=== PATIENT | male | born 1960 | race Caucasian/White ===

== ENCOUNTER 2022-07-02 08:12 | Outpatient (CLI) | payer OTHER, SELFPAY ==
[2022-07-02 08:52] LABS: Creatinine* 0.8 mg/dL (0.5-1.5); Estimated Glomerular Filt Rate 101 ml/min
--- NOTE | 2022-07-02 09:00 | CRLHL7_ITS ---
For Patients: As a result of the Century Cures Act, medical imaging exams and procedure reports are released immediately into your electronic medical record. You may view this report before your referring provider. If you have questions, please contact your health care provider. INDICATION: Right neck swelling. TECHNIQUE: CT of the neck soft tissues performed with IV contrast. Contrast: 95 cc Isovue 370. COMPARISON: None available at this institution. FINDINGS: There is fullness to the right palatine tonsil region, with masslike lesion measuring up to 2.0 x 1.6 cm (series 3, image 35). Lymph node severely compresses the internal jugular vein. There is a necrotic lymph node identified spanning right levels 2 and 3, measuring up to 6.6 cm in craniocaudad maximal diameter. There is haziness noted along the inferior aspect of the lymph node, with effacement of the fat plane between the lymph node in the sternocleidomastoid muscle. There are additional scattered smaller right cervical chain lymph nodes. The nasopharynx appears unremarkable. The supraglottic, glottic and infraglottic spaces are preserved. The parotid and submandibular glands appear unremarkable. The thyroid gland is normal. The visualized intracranial components appear grossly intact. Visualized orbits and contents appear unremarkable. Follow-up paranasal sinus mucosal disease. Scattered emphysema and atelectasis within the visualized lung apices. Mild spondylosis of the cervical spine. IMPRESSION: 1. Right palatine tonsil masslike fullness, worrisome for primary cancer. 2. Large right conglomerate levels 2 and 3 necrotic lymph node worrisome for metastases. Suggestion of extranodal spread, with haziness and effacement of the border between the lymph node and the sternocleidomastoid muscle along its inferior margin. 3. ENT consultation is recommended. Please note that all CT scans at this facility use dose modulation, iterative reconstruction, and/or weight-based dosing when appropriate to reduce radiation dose to as low as reasonably achievable. Dictated by Fede Hughes MD @ 07/02/2022 3:59:43 PM (Electronically Signed)
== END 2022-07-02 08:13 | disposition home or self-care (01) ==
LOC: CT 08:14
PROVIDERS: PCP Family Medicine; Visit Provider Family Medicine
DX: R22.1 Localized swelling, mass and lump, neck (principal); R59.9 Enlarged lymph nodes, unspecified
CPT/HCPCS: 36415; 70491; 82565; Q9967

== ENCOUNTER 2022-08-13 22:58 | Emergency (ER) | payer OTHER, SELFPAY ==
[2022-08-13 23:13] VITALS: BP 123/79; PULSE 113; RESP 20; TEMP 36.5; O2SAT 95; BMI 39.5
--- NOTE | 2022-08-13 23:37 | CRLHL7_ITS ---
For Patients: As a result of the Century Cures Act, medical imaging exams and procedure reports are released immediately into your electronic medical record. You may view this report before your referring provider. If you have questions, please contact your health care provider. INDICATION: Postop pain, difficulty swallowing. TECHNIQUE: CT soft tissue of the neck was acquired with 138 cc Isovue 370 IV contrast. COMPARISON: 07/02/2022. FINDINGS: Interval postsurgical changes of the right base of tongue and right neck dissection. Small peripherally enhancing low density collection in the right level IIa station measuring 1.2 x 0.8 x 1.1 cm (TR x AP x CC). Skull base: Unremarkable. Pharynx/Larynx/Trachea: Epiglottis is normal. Airway is patent. Salivary glands: Unremarkable. Thyroid gland: Unremarkable. No significant nodules. Lymph nodes: No lymphadenopathy. Vessels: Unremarkable for age. Bones: Degenerative changes of the spine. Misc: Asymmetric edema of the right sternocleidomastoid muscle. Lung apices: Emphysema. IMPRESSION: Postsurgical changes of the right base of tongue and right neck dissection. Small peripherally enhancing low density collection in the surgical bed right level IIa station, concerning for abscess. Please note that all CT scans at this facility use dose modulation, iterative reconstruction, and/or weight-based dosing when appropriate to reduce radiation dose to as low as reasonably achievable. Dictated by Sabino Martinez MD @ 08/14/2022 2:52:09 AM (Electronically Signed)
--- NOTE | 2022-08-13 23:53 | ED_ITS ---
HPI - General Adult General Chief complaint: Post Op Complication Stated complaint: post surgery pain, difficulty swallowing Time Seen by Provider: 08/13/22 23:34 History of Present Illness HPI narrative: Pt is a 62 year old gentleman who 10 days ago had surgery for oropharyngeal cancer. Pt was discharged and was managing his hydration and pain fairly well until the last 4 days during which time he has had progressive neck swelling primarily on the right and difficulty with hydration and pain control. No fevers or chills. No nausea or vomiting. No rashes. Pt has been taking oxycodone and tylenol for the pain which has been severe and uncontrolled. Related Data Home Medications Medication Instructions Recorded Confirmed atenolol 50 mg tablet 50 mg PO 07/07/22 07/07/22 rosuvastatin 10 mg tablet 10 mg PO 07/07/22 07/07/22 ibuprofen 08/13/22 oxycodone 5 mg tablet mg 08/13/22 tylenol 08/13/22 Previous Rx's Medication Instructions Recorded amoxicillin 400 mg-potassium 10 ml PO Q12H 7 days #140 mL 08/14/22 clavulanate 57 mg/5 mL oral suspension methylprednisolone 4 mg tablets in See Rx Instructions PO .COMPLEX 08/14/22 a dose pack (Medrol (David)) #21 ea oxycodone 5 mg/5 mL oral solution 10 mg (10 mL) PO Q8H PRN pain #200 08/14/22 mL Allergies Allergy/AdvReac Type Severity Reaction Status Date / Time prochlorperazine Allergy Unknown Itchy skin Verified 08/14/22 01:22 [From Compazine] ciprofloxacin Allergy Rash Verified 08/14/22 01:22 Review of Systems Status of ROS: Reports: 10 or more systems reviewed and unremarkable except as noted in History and below [facility] Medical History (Updated 08/14/22 @ 04:13 by Johnathan Hercules MD) Hyperlipidemia Hypertension Oropharyngeal cancer Social History Smoking Status: Current every day smoker How often do you have a drink containing alcohol: never AUDIT-C Alcohol total score: 0 Non-prescribed substance use: denies use Exam Narrative: Exam Narrative: EXAM GENERAL: Patient appears uncomfortable EYES: No scleral icterus. ENT: Oropharynx dry with postoperative surgical changes. Neck exam shows neck dissection incision with firm swelling on the right side. THYROID: no thyroid nodules or thyromegaly. LYMPH: No supraclavicular or cervical lymphadenopathy. SKIN: Visible skin seen during exam normal or with benign process only. EXT: No dependent lower extremity pedal edema. HEART: Regular rate and rhythm with no murmurs, rubs, or gallops. LUNGS: Clear to auscultation bilaterally with no crackles or wheezes. ABD: Soft, non tender, non distended. PSYCH: Good eye contact, speech is not pressured. Const: Vital Signs, click to edit/add: Vital Signs - 24 hr 08/13/22 23:13 08/14/22 00:19 08/14/22 00:30 Temperature 97.7 F Pulse Rate Pulse Rate [Left P ulse Oximeter] 113 H 96 88 Respiratory Rate 20 16 18 Blood Pressure Blood Pressure [Ri ght Upper Arm] 123/79 135/85 150/101 H Pulse Oximetry 95 96 92 Oxygen Delivery Me thod Room Air Room Air 08/14/22 00:30 08/14/22 00:31 08/14/22 00:32 Temperature Pulse Rate 90 91 91 Pulse Rate [Left P ulse Oximeter] Respiratory Rate Blood Pressure 150/101 H 161/96 H Blood Pressure [Ri ght Upper Arm] Pulse Oximetry 94 92 92 Oxygen Delivery Me thod 08/14/22 00:45 08/14/22 01:00 08/14/22 01:04 Temperature Pulse Rate 90 91 89 Pulse Rate [Left P ulse Oximeter] Respiratory Rate Blood Pressure 143/82 H Blood Pressure [Ri ght Upper Arm] Pulse Oximetry 94 94 95 Oxygen Delivery Me thod 08/14/22 01:15 08/14/22 01:37 08/14/22 01:45 Temperature Pulse Rate 87 95 84 Pulse Rate [Left P ulse Oximeter] Respiratory Rate Blood Pressure Blood Pressure [Ri ght Upper Arm] Pulse Oximetry 94 96 94 Oxygen Delivery Me thod 08/14/22 02:00 08/14/22 02:02 08/14/22 02:15 Temperature Pulse Rate 83 78 89 Pulse Rate [Left P ulse Oximeter] Respiratory Rate Blood Pressure 160/80 H Blood Pressure [Ri ght Upper Arm] Pulse Oximetry 95 93 94 Oxygen Delivery Me thod 08/14/22 02:30 08/14/22 02:32 08/14/22 02:45 Temperature Pulse Rate 74 76 81 Pulse Rate [Left P ulse Oximeter] Respiratory Rate Blood Pressure 154/78 H Blood Pressure [Ri ght Upper Arm] Pulse Oximetry 92 92 96 Oxygen Delivery Me thod 08/14/22 03:00 08/14/22 03:02 08/14/22 03:15 Temperature Pulse Rate 83 81 85 Pulse Rate [Left P ulse Oximeter] Respiratory Rate Blood Pressure 155/82 H Blood Pressure [Ri ght Upper Arm] Pulse Oximetry 96 95 95 Oxygen Delivery Me thod 08/14/22 03:30 08/14/22 03:32 08/14/22 03:45 Temperature Pulse Rate 77 84 75 Pulse Rate [Left P ulse Oximeter] Respiratory Rate Blood Pressure 147/88 H Blood Pressure [Ri ght Upper Arm] Pulse Oximetry 94 93 93 Oxygen Delivery Me thod 08/14/22 04:00 08/14/22 04:02 Temperature Pulse Rate 76 78 Pulse Rate [Left P ulse Oximeter] Respiratory Rate Blood Pressure 142/81 H Blood Pressure [Ri ght Upper Arm] Pulse Oximetry 94 93 Oxygen Delivery Me thod Course Course Hospital Course: Pt seen and examined. Labs and CT ordered. IV placed. Normal saline, zofran and dilaudid given. Reevaluation(s) Reevaluation #1: Pt feeling better after IV hydration and dilaudid. Labs stable with elevated WBC noted. 1 cm abscess in the surgical field noted on CT of the neck with IV contrast. [facility] contacted. Awaiting call back. Time: 03:38 Vital Signs Vital signs: Initial Vital Signs Temperature 97.7 F 08/13/22 23:13 Temperature Source Temporal Artery Scan 08/13/22 23:13 Pulse Rate 113 H 08/13/22 23:13 Respiratory Rate 20 08/13/22 23:13 Blood Pressure 123/79 08/13/22 23:13 Blood Pressure Mean 93 08/13/22 23:13 Blood Pressure Position Sitting 08/13/22 23:13 Pulse Oximetry 95 08/13/22 23:13 Oxygen Delivery Method 08/13/22 23:13 Vital Signs Temperature 97.7 F 08/13/22 23:13 Pulse Rate 113 H 08/13/22 23:13 Respiratory Rate 20 08/13/22 23:13 Blood Pressure 123/79 08/13/22 23:13 Pulse Oximetry 95 08/13/22 23:13 Oxygen Delivery Method 08/13/22 23:13 Temperature 97.7 F 08/13/22 23:13 Pulse Rate 78 08/14/22 04:02 Respiratory Rate 18 08/14/22 00:30 Blood Pressure 142/81 H 08/14/22 04:02 Pulse Oximetry 93 08/14/22 04:02 Oxygen Delivery Method 08/14/22 00:30 Medical Decision Making MDM Narrative Medical decision making narrative: Pt is a 62 year old gentleman who presents roughly 10 days after surgery for oropharyngeal cancer with pain and dehydration. Pt given IV fluids and pain medication. Cultures collected. CT shows 1 cm abscess. Case discussed with ENT at [facility] who recommend Augmentin, Medrol dose pack and Pain control with ENT follow up as scheduled in 2 days. Antibiotics started with Unasyn first dose tonight as well as solumedrol. Differential Diagnosis Differential Diagnosis: Infection, Hematoma, Perforation, Malignancy, Post op complication Medical Records Medical records reviewed: Yes I reviewed the patient's medical records Lab Data Labs: Lab Results 08/13/22 08/13/22 08/13/22 Range/Units 00:16 23:37 23:37 WBC 17.33 H (4.50-11.00) K/uL RBC 5.22 (4.30-5.90) m/uL Hgb 15.0 (13.5-17.5) gm/dL Hct 45.3 (37.0-53.0) % MCV 87 (80-100) fL MCH 29 (26-34) pg MCHC 33 (32-36) gm/dL RDW Coeff of Otis 13.4 (11.5-15.5) % Plt Count 255 (140-440) K/uL Neut % (Auto) 84.0 H (42.0-72.0) % Lymph % (Auto) 7.8 L (20-44) % [place] % (Auto) 6.3 (0.0-11.0) % Eos % (Auto) 1.3 (0.0-7.0) % Baso % (Auto) 0.1 (0.0-3.0) % Neut # (Auto) 14.60 H (1.7-7.0) K/uL Lymph # (Auto) 1.40 (0.90-2.90) K/uL [place] # (Auto) 1.10 H (0.00-0.90) K/UL Eos # (Auto) 0.20 (0.00-0.50) K/uL Baso # (Auto) 0.00 (0.00-0.30) K/uL Sodium 139 (135-149) mmol/L Potassium 4.3 (3.6-5.1) mmol/L Chloride 110 (96-114) mmol/L Carbon Dioxide 20 (20-32) mmol/L BUN 15 (7-30) mg/dL Creatinine 0.7 (0.5-1.5) mg/dL Estimated Creat Clear 82.62 Estimated GFR 105 ml/min Glucose 130 H (60-115) mg/dL Lactate 1.2 (0.5-1.9) mmol/L Calcium 8.8 (8.4-10.6) mg/dL Total Bilirubin 0.6 (0.1-1.5) mg/dL AST 27 (12-35) U/L ALT 26 (4-50) U/L Alkaline Phosphatase 79 (40-150) U/L Total Protein 7.3 (6.0-8.3) g/dL Albumin 4.0 (3.3-5.0) g/dL SARS-CoV-2 (PCR) (Negative) 08/14/22 Range/Units 03:09 WBC (4.50-11.00) K/uL RBC (4.30-5.90) m/uL Hgb (13.5-17.5) gm/dL Hct (37.0-53.0) % MCV (80-100) fL MCH (26-34) pg MCHC (32-36) gm/dL RDW Coeff of Otis (11.5-15.5) % Plt Count (140-440) K/uL Neut % (Auto) (42.0-72.0) % Lymph % (Auto) (20-44) % [place] % (Auto) (0.0-11.0) % Eos % (Auto) (0.0-7.0) % Baso % (Auto) (0.0-3.0) % Neut # (Auto) (1.7-7.0) K/uL Lymph # (Auto) (0.90-2.90) K/uL [place] # (Auto) (0.00-0.90) K/UL Eos # (Auto) (0.00-0.50) K/uL Baso # (Auto) (0.00-0.30) K/uL Sodium (135-149) mmol/L Potassium (3.6-5.1) mmol/L Chloride (96-114) mmol/L Carbon Dioxide (20-32) mmol/L BUN (7-30) mg/dL Creatinine (0.5-1.5) mg/dL Estimated Creat Clear Estimated GFR ml/min Glucose (60-115) mg/dL Lactate (0.5-1.9) mmol/L Calcium (8.4-10.6) mg/dL Total Bilirubin (0.1-1.5) mg/dL AST (12-35) U/L ALT (4-50) U/L Alkaline Phosphatase (40-150) U/L Total Protein (6.0-8.3) g/dL Albumin (3.3-5.0) g/dL SARS-CoV-2 (PCR) Negative SARS-CoV-2 (Negative) Discharge Plan Discharge Clinical Impression: Post-operative complication Patient Disposition: Home, Self-Care Condition: Stable Additional Instructions: Medications as prescribed Follow up with ENT Tuesday Activity Level: No Restrictions Discharge Diet: Regular Prescriptions: New oxycodone 5 mg/5 mL solution 10 mg PO Q8H PRN (Reason: pain) Qty: 200 0RF methylprednisolone [Medrol (David)] 4 mg tablets,dose pack See Rx Instructions .ROUTE .COMPLEX Qty: 21 0RF Rx Instructions: orally per package directions amoxicillin-pot clavulanate 400-57 mg/5 mL suspension for reconstitution 10 ml PO Q12H 7 Days Qty: 140 0RF No Action atenolol 50 mg tablet 50 mg PO rosuvastatin 10 mg tablet 10 mg PO oxycodone 5 mg tablet tylenol ibuprofen Follow Up/Referrals: Haider Adamson MD [Primary Care Provider] - Stand Alone Forms: MyHealth Info Instructions
[2022-08-14] VITALS (31 sets, daily range): BP systolic 135–161; BP diastolic 78–101; PULSE 74–96; RESP 16–18; O2SAT 92–96
[2022-08-14] MEDS: 0.9 % SODIUM CHLORIDE 1000 ml 1,000 ML IV ×2 (00:10→01:40)
[2022-08-14] MEDS: HYDROmorphone 0.5 mg/0.5 ml inj IVP ×3 (00:11→03:31)
[2022-08-14] MEDS: ONDANSETRON 2 MG/ML inj 4 MG IVP (00:11)
[2022-08-14 00:22] LABS: Lactate* 1.2 mmol/L (0.5-1.9)
[2022-08-14 00:25] LABS: Basophils Percent Auto 0.1 % (0.0-3.0); Eosinophils Percent Auto 1.3 % (0.0-7.0); Hematocrit 45.3 % (37.0-53.0); Immature Granulocytes Pct Auto 0.5 %; Lymphocytes Percent Auto 7.8 % (20-44); Mean Corpuscular HGB Conc 33 gm/dL (32-36); Mean Corpuscular Hemoglobin 29 pg (26-34); Mean Corpuscular Volume 87 fL (80-100); Monocytes Percent Auto 6.3 % (0.0-11.0); Platelet Count* 255 K/uL (140-440); RDW Coefficient of Variation % 13.4 % (11.5-15.5); Red Blood Count 5.22 m/uL (4.30-5.90); White Blood Count* 17.33 K/uL (4.50-11.00)
[2022-08-14 00:30] LABS: Slide Review Reflex No
[2022-08-14 00:59] LABS: Chloride* 110 mmol/L (96-114); Sodium* 139 mmol/L (135-149)
[2022-08-14 01:00] LABS: Potassium* 4.3 mmol/L (3.6-5.1)
[2022-08-14 01:02] LABS: Alkaline Phosphatase* 79 U/L (40-150); Aspartate Amino Transferase* 27 U/L (12-35); Bilirubin Total* 0.6 mg/dL (0.1-1.5); Blood Urea Nitrogen* 15 mg/dL (7-30); Carbon Dioxide* 20 mmol/L (20-32); Creatinine* 0.7 mg/dL (0.5-1.5); Est. Creatinine Clearance* 82.62; Estimated Glomerular Filt Rate 105 ml/min; Total Protein* 7.3 g/dL (6.0-8.3)
[2022-08-14 01:03] LABS: Alanine Aminotransferase* 26 U/L (4-50); Calcium* 8.8 mg/dL (8.4-10.6); Glucose* 130 mg/dL (60-115)
[2022-08-14 03:52] LABS: SARS PCR* Negative SARS-CoV-2 (Negative)
[2022-08-14] MEDS: AMPICILLIN/SULBACTAM 3 GM in 0.9 % SODIUM CHLORIDE Mini-bag 100 ML IVPB (04:29)
[2022-08-14] MEDS: METHYLPREDNISOLONE SOD SUCC 40 MG/ML IVP (04:56)
== END 2022-08-14 05:20 | disposition home or self-care (01) ==
PROVIDERS: Emergency Provider Internal Medicine; PCP Family Medicine
DX: G89.18 Other acute postprocedural pain (principal); R07.0 Pain in throat; C10.9 Malignant neoplasm of oropharynx, unspecified
CPT/HCPCS: 36415; 70491; 80053; 83605; 85025; 87040; 87635; 96365; 96375; 96376; 99283; 99284; J0295; J1170; J2405; J2920; J7030; Q9967

== ENCOUNTER 2022-11-19 08:15 | Outpatient (RCR) | payer OTHER, SELFPAY ==
--- NOTE | 2022-08-27 14:23 | URNOTE ---
Request received for authorization for Fosaprepitant ([id number]), Palonosetron (J2469), and Cisplatin (J9060). Prior authorization is not required per [facility] RepJoselito Strange Ref#[id number].
[2022-08-30 12:06] LABS: Basophils Absolute Auto 0.01 K/uL (0.00-0.30); Basophils Percent Auto 0.1 % (0.0-3.0); Eosinophils Absolute Auto 0.38 K/uL (0.00-0.50); Eosinophils Percent Auto 5.4 % (0.0-7.0); Hematocrit 45.1 % (37.0-53.0); Hemoglobin* 14.7 gm/dL (13.5-17.5); Immature Granulocytes Abs Auto 0.05 K/uL (0.00-0.30); Immature Granulocytes Pct Auto 0.7 %; Lymphocytes Absolute Auto 1.88 K/uL (0.90-2.90); Lymphocytes Percent Auto 26.7 % (20-44); Mean Corpuscular HGB Conc 33 gm/dL (32-36); Mean Corpuscular Hemoglobin 29 pg (26-34); Mean Corpuscular Volume 88 fL (80-100); Monocytes Percent Auto 9.5 % (0.0-11.0); Neutrophils Absolute Auto 4.04 K/uL (1.7-7.0); Neutrophils Percent Auto 57.6 % (42.0-72.0); Platelet Count* 287 K/uL (140-440); RDW Coefficient of Variation % 13.8 % (11.5-15.5); Red Blood Count 5.15 m/uL (4.30-5.90); White Blood Count* 7.03 K/uL (4.50-11.00)
[2022-08-30 12:10] LABS: Slide Review Reflex No
[2022-08-30 12:19] LABS: Chloride* 107 mmol/L (96-114)
[2022-08-30 12:20] LABS: Potassium* 4.9 mmol/L (3.6-5.1); Sodium* 140 mmol/L (135-149)
[2022-08-30 12:22] LABS: Alanine Aminotransferase* 36 U/L (4-50); Alkaline Phosphatase* 60 U/L (40-150); Aspartate Amino Transferase* 29 U/L (12-35); Bilirubin Total* 0.5 mg/dL (0.1-1.5); Blood Urea Nitrogen* 12 mg/dL (7-30); Carbon Dioxide* 28 mmol/L (20-32); Estimated Glomerular Filt Rate 86 ml/min; Total Protein* 7.1 g/dL (6.0-8.3)
[2022-08-30 12:23] LABS: Calcium* 9.6 mg/dL (8.4-10.6); Glucose* 113 mg/dL (60-115); Magnesium* 2.1 mg/dL (1.5-2.6)
--- NOTE | 2022-08-30 15:59 | ONC.NURNOTE ---
MNT referral placed discussed with patient and
--- NOTE | 2022-08-30 16:14 | ONC.NURNOTE ---
Addendum entered by Geena Brown RN 08/30/22 16:28: patient can not take Compazine due to adverse reaction years ago- felt like he was crawling out of his skin discussed option of olanzapine or dexamethasone to add prn to home meds due to ongoing insomnia olanzapine will be tried plan as follows lorazepam HS night of chemo and repeat in am after chemo may start Zofran 24 hours after chemo per Barb; recommendation is alternating Zofran and lorazepam days 1 and 2 after chemo if he has breakthrough nausea then omit the lorazepam and use the olanzapine alternating with zofran and call the clinic with update Original Note: New chemo start teaching reviewed new treatment binder discussed possible side effects self care at home after hours management and calling with questions, concerns or changes at home need for excellent hydration questions addressed KEIRA and consents reviewed and signed
--- NOTE | 2022-08-31 09:46 | ONC.NURNOTE ---
PSDS = 0 symptom concerns- sleep and nausea- addressed in prechemo education
[2022-09-07 08:55] VITALS: BP 113/82; PULSE 70; RESP 18; TEMP 36.1; O2SAT 97
[2022-09-07] MEDS: 0.9 % SODIUM CHLORIDE 1000 ml 1,000 ML 500 ML IV (09:16)
[2022-09-07] MEDS: PALONOSETRON 0.25 MG/5 ML inj IV (09:17)
[2022-09-07] MEDS: dexAMETHasone 10 MG in 0.9 % SODIUM CHLORIDE 100 ml 100 ML 404 MG IVPB (10:01)
[2022-09-07 10:19] VITALS: BMI 36.8
[2022-09-07] MEDS: FOSAPREPITANT 150 MG inj 150 MG in 0.9 % SODIUM CHLORIDE 250 ml 250 ML 510 MG IVPB (10:22)
--- NOTE | 2022-09-08 10:10 | ONC.NURNOTE ---
Letterpress Setter called patient regarding first chemotherapy yesterday. He notes that he is feeling well, denies all nausea and slept well last night. He took one lorazepam before bed, and has not yet taken anything today. Told that he does not need to follow recommendation of zofran TID today and tomorrow if he doesn't feel that he needs it, but instructed to take at first signs of nausea. Patiend understanding. He will watch his bowels and take senna as needed for any slowing of bowels as well.
[2022-09-13 10:20] LABS: Basophils Percent Auto 0.2 % (0.0-3.0); Eosinophils Percent Auto 1.8 % (0.0-7.0); Hematocrit 48.5 % (37.0-53.0); Hemoglobin* 16.3 gm/dL (13.5-17.5); Immature Granulocytes Pct Auto 1.7 %; Lymphocytes Percent Auto 11.9 % (20-44); Mean Corpuscular HGB Conc 34 gm/dL (32-36); Mean Corpuscular Hemoglobin 28 pg (26-34); Mean Corpuscular Volume 83 fL (80-100); Neutrophils Percent Auto 75.4 % (42.0-72.0); Platelet Count* 294 K/uL (140-440); RDW Coefficient of Variation % 13.3 % (11.5-15.5); Red Blood Count 5.82 m/uL (4.30-5.90); White Blood Count* 11.73 K/uL (4.50-11.00)
[2022-09-13 10:29] LABS: Slide Review Reflex No
[2022-09-13 10:37] LABS: Albumin* 4.6 g/dL (3.3-5.0); Chloride* 97 mmol/L (96-114)
[2022-09-13 10:38] LABS: Potassium* 3.9 mmol/L (3.6-5.1); Sodium* 134 mmol/L (135-149)
[2022-09-13 10:40] LABS: Aspartate Amino Transferase* 32 U/L (12-35); Bilirubin Total* 0.8 mg/dL (0.1-1.5); Blood Urea Nitrogen* 30 mg/dL (7-30); Carbon Dioxide* 26 mmol/L (20-32); Creatinine* 1.8 mg/dL (0.5-1.5); Estimated Glomerular Filt Rate 42 ml/min; Total Protein* 7.8 g/dL (6.0-8.3)
[2022-09-13 10:41] LABS: Alanine Aminotransferase* 40 U/L (4-50); Alkaline Phosphatase* 76 U/L (40-150); Calcium* 10.3 mg/dL (8.4-10.6); Glucose* 174 mg/dL (60-115); Magnesium* 1.7 mg/dL (1.5-2.6)
--- NOTE | 2022-09-13 12:51 | ONC.NURNOTE ---
Addendum entered by Geena Brown RN 09/13/22 15:52: Ondansetron 8 mg tabs PA approved 09/13/22-06/19/23 [facility] ph [phone] fax [phone] Original Note: PA sent to [facility] for quanity limit over ride for ondansetron Ray is limited to #9 tabs per 30 days and has run out of zofran, experiencing nausea and anorexia due for weekly cisplat
--- NOTE | 2022-09-13 12:53 | ONC.NURNOTE ---
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/ reported running out of ondansetron over the weekend and his nausea escalated with loss of appetite no vomiting discussed with patient while and daughter present importance of managing nausea to keep up with his hydration -unable to give cisplat with curative intent when creat is elevated -reminded patient that his caloric intake and hydration status is part of his treatment and necessary for preceding with weekly treatment -discussed minimal hydration daily is 64 oz -further antiemetic plan to be discussed with Dr Latham tomorrow -patient saw the dietitian last week -reviewed supplements like Premier Protein, [place] instant breakfast, ensures and sustacal, boost -reminded patient of option of a G- tube for caloric intake if unable to maintain po -patient reported 15# weight loss this past week -chemo planned at [place] on Tue and hydration appt given for Tuesday Original Note: Patient and reports ongoing nausea since Tuesday, with no desire to eat or drink noted increasing physical weakness over the weekend creat noted today at 1.8 orders received for IV hydration today
[2022-09-13 13:30] VITALS: BP 103/65; PULSE 83; RESP 20; TEMP 35.6; O2SAT 99
[2022-09-13] MEDS: 0.9 % SODIUM CHLORIDE 1000 ml 1,000 ML IV (13:51)
[2022-09-13] MEDS: dexAMETHasone 10 MG in 0.9 % SODIUM CHLORIDE 100 ml 100 ML 404 MG IVPB (13:51)
[2022-09-13] MEDS: ONDANSETRON 2 MG/ML inj 8 MG IVP (13:52)
[2022-09-13 14:36] VITALS: BP 106/76; PULSE 116; RESP 16; TEMP 35.9; O2SAT 97
--- NOTE | 2022-09-13 16:39 | ONC.NURNOTE ---
Regarding upcoming appts Due to scarity of cisplatin, Chad will be receiving week 2 of weekly cisplat at [facility] on 09/15/[address] at [address] Latham per [facility]V at [facility] on 09/14/22 with repeat creat other appts for lab and PA on 09/14 at [facility] were canceled because they were duplicate appts with [facility] Equal Opportunity Representative phone [facility] and confirmed that orders are in place for Cisplat on 09/15/22 and this office will have drawn all labs, patient bringing copy of labs with him to [facility]
[2022-09-14 08:50] LABS: Creatinine* 1.7 mg/dL (0.5-1.5); Estimated Glomerular Filt Rate 45 ml/min
--- NOTE | 2022-09-14 13:40 | ONC.NURNOTE ---
LABS/ DR HAGEN NOTE FAXED TO MED ONC BALANCE WHEEL MOTION INSPECTOR AT [facility]
--- NOTE | 2022-09-16 12:16 | ONC.NURNOTE ---
Post chemo follow up call: Ray reports feeling very well today and reports drinking fluids including, water, gatorade and OJ aware of tomorrow's hydration appt lab orders received from [facility] for tomorrow
[2022-09-17 08:50] VITALS: BP 116/78; PULSE 63; RESP 16; TEMP 35.4; O2SAT 97
[2022-09-17 09:15] LABS: Potassium* 3.7 mmol/L (3.6-5.1); Sodium* 136 mmol/L (135-149)
[2022-09-17 09:18] LABS: Creatinine* 1.6 mg/dL (0.5-1.5); Est. Creatinine Clearance* 48.48; Estimated Glomerular Filt Rate 49 ml/min; Magnesium* 1.6 mg/dL (1.5-2.6)
[2022-09-17] MEDS: 0.9 % SODIUM CHLORIDE 1000 ml 1,000 ML IV (09:30)
--- NOTE | 2022-09-17 09:36 | PC.NURSE ---
Pt present at [facility] today for IVF. Chad states that he feels good today and declines IV dexamethasone and Zofran. He has oral Zofran at home and is using olanzapine as prescribed. RN reviewed MD orders and noted the on need basis. Pt feels strongly that he only get IVF today and that he will manage any potential nausea over the weekend with his home meds.
--- NOTE | 2022-09-20 15:08 | ONC.NURNOTE ---
reports that Ray is experiencing significant dysphagia and mild nausea he is out of olanzapine po intake today includes a milk shake he has been in bed most of weekend with increasing weakness mortgage underwriter notified Rad Onc/ Yesenia Baker and following recommended with - assessment, lab and IV fluids needed options include -[facility] [facility] today for hydration, if admitted than they can continue with XRT in [place] -if come to [facility] for evaluation and admitted- XRT will be held while inpatient here Appt with Dr Messina tomorrow am
--- NOTE | 2022-09-21 09:51 | ONC.NURNOTE ---
Addendum entered by Geena Brown RN 09/24/22 14:15: Nurse note entered on wrong chart disregard this documentation Original Note: Tawana Birmingham phoned in today to cancel today's appt with Dr Latham, chemo teaching, and chemo start tomorrow She reports feeling unwell, mentioned episodes of diarrhea and wants to follow up with her PCP prior to starting any further treatment she has read the treatment handouts Tawana Birmingham states she left a message with Reji, but has not talked to him about her decision literary writer confirmed with Tawana Birmingham that she will call the [facility] back after her provider appt with her next step intentions
[2022-09-21 10:17] LABS: Basophils Absolute Auto 0.01 K/uL (0.00-0.30); Basophils Percent Auto 0.1 % (0.0-3.0); Eosinophils Absolute Auto 0.16 K/uL (0.00-0.50); Eosinophils Percent Auto 2.3 % (0.0-7.0); Hematocrit 41.9 % (37.0-53.0); Immature Granulocytes Abs Auto 0.04 K/uL (0.00-0.30); Immature Granulocytes Pct Auto 0.6 %; Lymphocytes Percent Auto 9.4 % (20-44); Mean Corpuscular HGB Conc 33 gm/dL (32-36); Mean Corpuscular Hemoglobin 28 pg (26-34); Mean Corpuscular Volume 84 fL (80-100); Monocytes Percent Auto 9.9 % (0.0-11.0); Neutrophils Percent Auto 77.7 % (42.0-72.0); Platelet Count* 157 K/uL (140-440); RDW Coefficient of Variation % 13.9 % (11.5-15.5); Red Blood Count 4.98 m/uL (4.30-5.90)
[2022-09-21 10:20] LABS: Slide Review Reflex No
[2022-09-21] MEDS: 0.9 % SODIUM CHLORIDE 1000 ml 1,000 ML IV (10:20)
[2022-09-21 10:28] LABS: Albumin* 3.9 g/dL (3.3-5.0); Chloride* 103 mmol/L (96-114); Potassium* 3.6 mmol/L (3.6-5.1); Sodium* 136 mmol/L (135-149)
[2022-09-21 10:30] LABS: Bilirubin Total* 0.6 mg/dL (0.1-1.5); Creatinine* 1.4 mg/dL (0.5-1.5); Est. Creatinine Clearance* 55.41; Estimated Glomerular Filt Rate 57 ml/min
[2022-09-21 10:31] LABS: Alanine Aminotransferase* 23 U/L (4-50); Alkaline Phosphatase* 63 U/L (40-150); Aspartate Amino Transferase* 30 U/L (12-35); Blood Urea Nitrogen* 29 mg/dL (7-30); Carbon Dioxide* 26 mmol/L (20-32); Glucose* 126 mg/dL (60-115); Total Protein* 7.1 g/dL (6.0-8.3)
[2022-09-21 10:32] LABS: Calcium* 8.9 mg/dL (8.4-10.6); Magnesium* 1.4 mg/dL (1.5-2.6)
--- NOTE | 2022-09-21 14:43 | PC.NURSE ---
Pt present at [facility] for labs and IVF. After pt discharged, Mg level came back at 1.4. TORB obtained from Dr. Latham for IV replacement. Orders and labs faxed to [facility] infusion department. Pt's also has copies of pt's lab results from today.
--- NOTE | 2022-09-21 16:25 | NUTR.NU ---
Nutrition follow-up: RDN followed up with patient regarding significant dysphagia, low intakes, and weight loss. RDN spoke to patient via phone whom reported he has been dealing with thrush recently. He is planning on getting some medication/mouthwash to help with this. He also is not able to tolerated any solid foods, only cold pureed foods. His taste is altered as well and reported nothing tastes good. He can taste and tolerate ice cream and protein shakes. He reports having one ice cream shake daily, and at least four protein shakes every day. RDN encouraged him to increase his protein shake intake to at least 5-6 per day, if not more. Encouraged him to add ice cream to protein shakes to increase flavor. Also reminded him of other protein shake recipes RDN provided him during nutrition appointment on 09/07/22. Patient is aware of how many calories and grams of protein his goal is daily. RDN offered and encouraged a nutrition follow-up visit, however patient declined at this time. Weight history: 09/07/22 - 264 lb 1 oz 09/14/22 - 255 lb 7 oz 09/17/22 - 261 lb 9.6 oz His weight has been fairly stable since the beginning of treatment. No significant changes at this time. RDN will continue to monitor and follow-up prn.
[2022-09-24 09:15] VITALS: BP 124/80; PULSE 70; RESP 16; TEMP 36.2; O2SAT 97
[2022-09-24 09:34] LABS: Sodium* 139 mmol/L (135-149)
[2022-09-24 09:35] LABS: Potassium* 3.5 mmol/L (3.6-5.1)
[2022-09-24 09:37] LABS: Creatinine* 1.4 mg/dL (0.5-1.5); Est. Creatinine Clearance* 55.41; Estimated Glomerular Filt Rate 57 ml/min
[2022-09-24 09:38] LABS: Magnesium* 1.7 mg/dL (1.5-2.6)
--- NOTE | 2022-09-24 10:57 | ONC.NURNOTE ---
Pt here for IVF today; he is feeling well. He has low appetite, but is able to drink without pain or nausea, just c/o taste changes. He is drinking protein shakes and other liquids; tolerated Coca cola without pain. Nausea well-controlled with Zofran regularly; managing constipation with stool softeners. He does not feel like he needs the Dex or Zofran in his IVF today and would like to omit; 1L NS given. RTC Mon 09/27 to see Yeison.
[2022-09-27] MEDS: dexAMETHasone 10 MG in 0.9 % SODIUM CHLORIDE 100 ml 100 ML 420 MG IVPB (09:30)
[2022-09-27 09:56] LABS: Potassium* 3.3 mmol/L (3.6-5.1)
[2022-09-27 09:59] LABS: Magnesium* 1.6 mg/dL (1.5-2.6)
[2022-09-27] MEDS: POTASSIUM CHLORIDE 10 MEQ/100 ML PIGGYBACK 100 MEQ IVPB (11:12)
[2022-09-27] MEDS: POTASSIUM CHLORIDE 10 MEQ, LIDOCAINE 1 % 1 ML in 0.9 % SODIUM CHLORIDE 100 ml 100 ML 106 MEQ IVPB (12:40)
--- NOTE | 2022-09-28 09:02 | ONC.NURNOTE ---
Pt was here 09/24 for labs and IVF. Treatment recommendation for Mg 2gm IV on 09/23 in chart. Mg rechecked 09/24 1.7; pt is tolerating his oral magnesium and feeling well, denies loose stools. IV Mg not given. Labs rechecked Mon 09/28; Mg stable at 1.6. Labs to be rechecked today for chemo tomorrow.
[2022-09-28 09:40] LABS: Basophils Absolute Auto 0.01 K/uL (0.00-0.30); Basophils Percent Auto 0.1 % (0.0-3.0); Eosinophils Absolute Auto 0.08 K/uL (0.00-0.50); Eosinophils Percent Auto 1.2 % (0.0-7.0); Hematocrit 37.9 % (37.0-53.0); Hemoglobin* 12.7 gm/dL (13.5-17.5); Immature Granulocytes Abs Auto 0.03 K/uL (0.00-0.30); Immature Granulocytes Pct Auto 0.4 %; Lymphocytes Percent Auto 11.7 % (20-44); Mean Corpuscular HGB Conc 34 gm/dL (32-36); Mean Corpuscular Hemoglobin 28 pg (26-34); Mean Corpuscular Volume 85 fL (80-100); Neutrophils Percent Auto 77.6 % (42.0-72.0); Platelet Count* 105 K/uL (140-440); RDW Coefficient of Variation % 13.6 % (11.5-15.5); Red Blood Count 4.48 m/uL (4.30-5.90); White Blood Count* 6.91 K/uL (4.50-11.00)
[2022-09-28 09:44] LABS: Slide Review Reflex No
[2022-09-28 09:52] LABS: Albumin* 3.8 g/dL (3.3-5.0); Chloride* 104 mmol/L (96-114); Potassium* 3.4 mmol/L (3.6-5.1); Sodium* 139 mmol/L (135-149)
[2022-09-28 09:54] LABS: Creatinine* 1.3 mg/dL (0.5-1.5); Est. Creatinine Clearance* 59.67; Estimated Glomerular Filt Rate 63 ml/min
[2022-09-28 09:55] LABS: Alanine Aminotransferase* 26 U/L (4-50); Alkaline Phosphatase* 57 U/L (40-150); Aspartate Amino Transferase* 26 U/L (12-35); Bilirubin Total* 0.3 mg/dL (0.1-1.5); Blood Urea Nitrogen* 29 mg/dL (7-30); Calcium* 8.9 mg/dL (8.4-10.6); Carbon Dioxide* 27 mmol/L (20-32); Glucose* 139 mg/dL (60-115); Total Protein* 6.9 g/dL (6.0-8.3)
[2022-09-28 09:56] LABS: Magnesium* 1.5 mg/dL (1.5-2.6)
--- NOTE | 2022-09-28 14:34 | ONC.NURNOTE ---
Addendum entered and electronically signed by Barb Paz APRN 09/29/22 00:03: Cisplatin weekly dose reduced from 40mg/m2 to 75% or 30mg/m2 in treatment plan for cycles 4-6. 2gm of MgSO4 added to NS 1000ml pre and post hydration. 10meq potassium chloride IV x1 with hydration. OK to mix with NS and mg into 1 IV bag by pharmacy if desired. Original Note: Patient having difficulty getting to [facility] for infusion tomorrow. Alterations Workroom Clerk talked with pharmacy and we now have enough cisplatin to treat patient for the remainder of his treatment. Alterations Workroom Clerk talked with Dr. galeas and she is comfortable switching patient to [place] knowing that we have enough cisplatin. She has changed patient to 30mg/m2 in [place], and would like this to continue in [place]. Discussed with SOFTWARE REQUIREMENTS ENGINEER and she will change orders. Patient also needing magnesium added to his fluid orders, so she will adjust this as well this evening.
[2022-09-29 09:01] VITALS: BP 104/71; PULSE 72; RESP 16; TEMP 36.2; O2SAT 98
[2022-09-29] MEDS: MAGNESIUM SULFATE 2 GM, POTASSIUM CHLORIDE 10 MEQ in 0.9 % SODIUM CHLORIDE 1000 ml 1,00... IV (09:49)
[2022-09-29] MEDS: dexAMETHasone 10 MG in 0.9 % SODIUM CHLORIDE 100 ml 100 ML 404 MG IVPB (10:55)
[2022-09-29] MEDS: PALONOSETRON 0.25 MG/5 ML inj IV (10:55)
[2022-09-29] MEDS: FOSAPREPITANT 150 MG inj 150 MG in 0.9 % SODIUM CHLORIDE 250 ml 250 ML 510 MG IVPB (11:14)
[2022-09-29] MEDS: CISPLATIN IV (11:53)
[2022-09-29] MEDS: TUBING SECONDARY IV (11:53)
[2022-09-29] MEDS: SODIUM CHLORIDE 0.9% IV (11:53)
[2022-10-04 08:55] LABS: Basophils Absolute Auto 0.01 K/uL (0.00-0.30); Basophils Percent Auto 0.2 % (0.0-3.0); Eosinophils Absolute Auto 0.08 K/uL (0.00-0.50); Eosinophils Percent Auto 1.7 % (0.0-7.0); Hemoglobin* 12.7 gm/dL (13.5-17.5); Immature Granulocytes Abs Auto 0.03 K/uL (0.00-0.30); Immature Granulocytes Pct Auto 0.6 %; Lymphocytes Percent Auto 8.8 % (20-44); Mean Corpuscular HGB Conc 33 gm/dL (32-36); Mean Corpuscular Hemoglobin 28 pg (26-34); Mean Corpuscular Volume 85 fL (80-100); Monocytes Percent Auto 8.4 % (0.0-11.0); Neutrophils Percent Auto 80.3 % (42.0-72.0); Platelet Count* 108 K/uL (140-440); RDW Coefficient of Variation % 14.2 % (11.5-15.5); Red Blood Count 4.47 m/uL (4.30-5.90); Slide Review Reflex No; White Blood Count* 4.66 K/uL (4.50-11.00)
[2022-10-04 09:09] LABS: Albumin* 4.1 g/dL (3.3-5.0); Chloride* 104 mmol/L (96-114); Potassium* 4.2 mmol/L (3.6-5.1); Sodium* 138 mmol/L (135-149)
[2022-10-04 09:11] LABS: Creatinine* 1.4 mg/dL (0.5-1.5); Est. Creatinine Clearance* 55.41; Estimated Glomerular Filt Rate 57 ml/min
[2022-10-04 09:12] LABS: Alanine Aminotransferase* 31 U/L (4-50); Alkaline Phosphatase* 60 U/L (40-150); Aspartate Amino Transferase* 26 U/L (12-35); Bilirubin Total* 0.5 mg/dL (0.1-1.5); Blood Urea Nitrogen* 35 mg/dL (7-30); Calcium* 8.8 mg/dL (8.4-10.6); Carbon Dioxide* 28 mmol/L (20-32); Glucose* 167 mg/dL (60-115); Total Protein* 7.2 g/dL (6.0-8.3)
[2022-10-04 09:13] LABS: Magnesium* 1.3 mg/dL (1.5-2.6)
--- NOTE | 2022-10-04 13:26 | ONC.NURNOTE ---
Reviewed todays labs with Dr. Latham. Recommends decreasing patients Cisplatin from 40mg/m2 to 30mg/m2 for tomorrow and to recheck a magnesium on Tuesday and give fluids (from standing order). Give magnesium if needed by following the cisplatin magnesium replacement protocol. Patient was called and given this information over the phone. Patient will come after radiation on Tuesday around 845.
[2022-10-05 09:11] VITALS: BP 114/80; PULSE 76; RESP 16; TEMP 35.7; O2SAT 98
[2022-10-05] MEDS: MAGNESIUM SULFATE 2 GM, POTASSIUM CHLORIDE 10 MEQ in 0.9 % SODIUM CHLORIDE 1000 ml 1,00... IV (10:00)
[2022-10-05] MEDS: PALONOSETRON 0.25 MG/5 ML inj IV (11:04)
[2022-10-05] MEDS: dexAMETHasone 10 MG in 0.9 % SODIUM CHLORIDE 100 ml 100 ML 404 MG IVPB (11:04)
[2022-10-05] MEDS: FOSAPREPITANT 150 MG inj 150 MG in 0.9 % SODIUM CHLORIDE 250 ml 250 ML 510 MG IVPB (11:23)
[2022-10-05] MEDS: TUBING SECONDARY IV (12:01)
[2022-10-05] MEDS: SODIUM CHLORIDE 0.9% IV (12:01)
[2022-10-05] MEDS: CISPLATIN IV (12:01)
[2022-10-08 09:27] VITALS: BP 111/71; PULSE 72; RESP 16; TEMP 36.8; O2SAT 97
[2022-10-08 09:44] LABS: Magnesium* 1.3 mg/dL (1.5-2.6)
[2022-10-08] MEDS: MAGNESIUM IV 2 GM/50 ML PIGGYBACK IVPB (10:52)
--- NOTE | 2022-10-08 10:58 | ONC.NURNOTE ---
Refrigerator Tester got verbal order from [facility] coroner MD for 4 gms magnesium replacement due to magnesium drawn today of 1.3. Recommended patient get this over 4 hours however patient has appointment so would like 2 grams today and [address] Latham here 10/11/2022 and will reassess after blood draw. Patient states he will be sure to do magnesium oxide 400mg po over the weekend
[2022-10-11 08:51] LABS: Basophils Percent Auto 0.3 % (0.0-3.0); Eosinophils Percent Auto 1.3 % (0.0-7.0); Hematocrit 36.6 % (37.0-53.0); Hemoglobin* 12.3 gm/dL (13.5-17.5); Immature Granulocytes Pct Auto 0.3 %; Lymphocytes Percent Auto 12.8 % (20-44); Mean Corpuscular HGB Conc 34 gm/dL (32-36); Mean Corpuscular Hemoglobin 28 pg (26-34); Mean Corpuscular Volume 84 fL (80-100); Monocytes Percent Auto 10.3 % (0.0-11.0); Platelet Count* 121 K/uL (140-440); RDW Coefficient of Variation % 14.2 % (11.5-15.5); Red Blood Count 4.34 m/uL (4.30-5.90)
[2022-10-11 09:00] LABS: Slide Review Reflex No
[2022-10-11 09:07] LABS: Albumin* 4.3 g/dL (3.3-5.0); Chloride* 105 mmol/L (96-114)
[2022-10-11 09:08] LABS: Potassium* 4.2 mmol/L (3.6-5.1); Sodium* 140 mmol/L (135-149)
[2022-10-11 09:10] LABS: Alanine Aminotransferase* 33 U/L (4-50); Alkaline Phosphatase* 66 U/L (40-150); Aspartate Amino Transferase* 29 U/L (12-35); Bilirubin Total* 0.7 mg/dL (0.1-1.5); Blood Urea Nitrogen* 42 mg/dL (7-30); Calcium* 9.3 mg/dL (8.4-10.6); Carbon Dioxide* 26 mmol/L (20-32); Creatinine* 1.5 mg/dL (0.5-1.5); Est. Creatinine Clearance* 51.72; Estimated Glomerular Filt Rate 53 ml/min; Glucose* 198 mg/dL (60-115); Total Protein* 7.5 g/dL (6.0-8.3)
[2022-10-11 09:11] LABS: Magnesium* 1.4 mg/dL (1.5-2.6)
[2022-10-11] MEDS: ONDANSETRON 2 MG/ML inj 8 MG IVP (09:50)
[2022-10-11] MEDS: LORazepam 2 MG/ML inj 1 MG IVP (09:55)
[2022-10-11] MEDS: dexAMETHasone 10 MG in 0.9 % SODIUM CHLORIDE 100 ml 100 ML 420 MG IVPB (09:55)
--- NOTE | 2022-10-11 13:13 | ONC.NURNOTE ---
Patient ambulated to the bathroom without difficulty. Patient stated he voided and it was clear and yellow. Stated nausea was better after the medications. Declined any food/drink while he was here.
[2022-10-12 08:52] VITALS: BP 135/81; PULSE 85; RESP 16; TEMP 36.4; O2SAT 98
[2022-10-12] MEDS: ONDANSETRON 2 MG/ML inj 8 MG IVP (09:07)
[2022-10-15 09:30] VITALS: BP 137/88; PULSE 105; RESP 18; TEMP 36.1; O2SAT 94
[2022-10-15] MEDS: FAMOTIDINE 10 MG/ML inj 20 MG IVP (10:40)
[2022-10-15 11:00] VITALS: BP 100/67; BP 121/82; PULSE 85; PULSE 95; RESP 16; TEMP 36.1
[2022-10-15] MEDS: 0.9 % SODIUM CHLORIDE 1000 ml 1,000 ML IV (11:00)
--- NOTE | 2022-10-15 13:16 | ONC.NURNOTE ---
weak pale grayish tone on arrival. states not able to take in po. states the nausea is the most troublesome. states 1-3 emesis daily. wt. down. heart rate a bit tachy at 105 and sl. increase resp with little ambulation. denies chest pain or sob. Jodi. Anjelica MONGE notified . pt given iv medication for gerd and a rx called in. pt. encouraged to increase zofran to tid. pt also rx called in to help if constipation. 1 Liter NS given. vs orthastatics as 121/82-85. sitting. 100/67-96 standing. denies lightheadedness. 2nd liter NS given. pts color improved and states feeling better. able to walk out to car. enc him to call M/S Charge nurse over the weekent if needing fluids. orders left with M/S Chg.
[2022-10-18 09:11] LABS: Basophils Percent Auto 0.4 % (0.0-3.0); Eosinophils Percent Auto 1.7 % (0.0-7.0); Hematocrit 31.8 % (37.0-53.0); Hemoglobin* 10.7 gm/dL (13.5-17.5); Immature Granulocytes Pct Auto 0.9 %; Mean Corpuscular HGB Conc 34 gm/dL (32-36); Mean Corpuscular Hemoglobin 29 pg (26-34); Mean Corpuscular Volume 86 fL (80-100); Monocytes Percent Auto 10.7 % (0.0-11.0); Neutrophils Percent Auto 71.3 % (42.0-72.0); Platelet Count* 76 K/uL (140-440); RDW Coefficient of Variation % 14.9 % (11.5-15.5); Red Blood Count 3.72 m/uL (4.30-5.90); White Blood Count* 2.34 K/uL (4.50-11.00)
[2022-10-18 09:15] LABS: Slide Review Reflex No
[2022-10-18 09:22] LABS: Albumin* 3.9 g/dL (3.3-5.0); Chloride* 104 mmol/L (96-114)
[2022-10-18 09:23] LABS: Sodium* 137 mmol/L (135-149)
[2022-10-18 09:25] LABS: Alkaline Phosphatase* 59 U/L (40-150); Aspartate Amino Transferase* 26 U/L (12-35); Bilirubin Total* 0.5 mg/dL (0.1-1.5); Carbon Dioxide* 28 mmol/L (20-32); Creatinine* 1.3 mg/dL (0.5-1.5); Est. Creatinine Clearance* 52.62; Estimated Glomerular Filt Rate 63 ml/min
[2022-10-18 09:26] LABS: Alanine Aminotransferase* 31 U/L (4-50); Blood Urea Nitrogen* 25 mg/dL (7-30); Calcium* 8.9 mg/dL (8.4-10.6); Glucose* 130 mg/dL (60-115); Magnesium* 1.2 mg/dL (1.5-2.6)
[2022-10-18 09:30] VITALS: BP 114/77; BP 95/70; PULSE 115; PULSE 99; RESP 16; TEMP 36.1; O2SAT 99
--- NOTE | 2022-10-18 14:32 | ONC.NURNOTE ---
Ray states less nausea and able to take in some po. states pepcid bid really helped him. one burgandy stool. chemo held due to low plts. poss chemo wedn. orthoatatics sitting 114/77-99. standing 95/70-115. denies lighthead. Barb Dejesus APRN aware of pts plts. also mag level was 1.2. 4gm mag given in 1L NS over 2 hrs. ls clear heart reg s1s2 before and after IVF.
[2022-10-19 08:52] VITALS: BP 124/77; PULSE 93; PULSE 98; RESP 16; TEMP 36.1; O2SAT 98
[2022-10-19] MEDS: MAGNESIUM SULFATE 2 GM, POTASSIUM CHLORIDE 10 MEQ in 0.9 % SODIUM CHLORIDE 1000 ml 1,00... IV (09:23)
[2022-10-19] MEDS: dexAMETHasone 10 MG in 0.9 % SODIUM CHLORIDE 100 ml 100 ML 404 MG IVPB (10:27)
[2022-10-19] MEDS: PALONOSETRON 0.25 MG/5 ML inj IV (10:29)
[2022-10-19] MEDS: FOSAPREPITANT 150 MG inj 150 MG in 0.9 % SODIUM CHLORIDE 250 ml 250 ML 510 MG IVPB (10:43)
[2022-10-19] MEDS: SODIUM CHLORIDE 0.9% IV (11:27)
[2022-10-19] MEDS: TUBING SECONDARY IV (11:27)
[2022-10-19] MEDS: CISPLATIN IV (11:27)
[2022-10-22 09:24] VITALS: BP 101/79; PULSE 91; RESP 16; TEMP 36.7; O2SAT 99
[2022-10-22 09:42] LABS: Chloride* 100 mmol/L (96-114); Sodium* 137 mmol/L (135-149)
[2022-10-22 09:43] LABS: Potassium* 3.5 mmol/L (3.6-5.1)
[2022-10-22 09:45] LABS: Carbon Dioxide* 29 mmol/L (20-32); Creatinine* 1.2 mg/dL (0.5-1.5); Est. Creatinine Clearance* 64.64; Estimated Glomerular Filt Rate 69 ml/min
[2022-10-22 09:46] LABS: Blood Urea Nitrogen* 33 mg/dL (7-30); Calcium* 8.7 mg/dL (8.4-10.6); Glucose* 123 mg/dL (60-115); Magnesium* 1.2 mg/dL (1.5-2.6)
[2022-10-22] MEDS: dexAMETHasone 10 MG in 0.9 % SODIUM CHLORIDE 100 ml 100 ML 420 MG IVPB (10:10)
[2022-10-25 13:15] VITALS: BP 116/77; PULSE 95; RESP 16; TEMP 36.7; O2SAT 99
[2022-10-25 13:37] LABS: Eosinophils Percent Auto 2.1 % (0.0-7.0); Hematocrit 30.6 % (37.0-53.0); Hemoglobin* 10.4 gm/dL (13.5-17.5); Immature Granulocytes Pct Auto 2.1 %; Lymphocytes Percent Auto 20.3 % (20-44); Mean Corpuscular HGB Conc 34 gm/dL (32-36); Mean Corpuscular Hemoglobin 29 pg (26-34); Mean Corpuscular Volume 85 fL (80-100); Monocytes Percent Auto 12.3 % (0.0-11.0); Neutrophils Percent Auto 63.2 % (42.0-72.0); Platelet Count* 147 K/uL (140-440); RDW Coefficient of Variation % 15.3 % (11.5-15.5); Red Blood Count 3.61 m/uL (4.30-5.90)
[2022-10-25 13:50] LABS: Slide Review Reflex No; White Blood Count* 1.87 K/uL (4.50-11.00)
[2022-10-25] MEDS: dexAMETHasone 10 MG in 0.9 % SODIUM CHLORIDE 100 ml 100 ML 420 MG IVPB (14:00)
[2022-10-25 14:06] LABS: Chloride* 100 mmol/L (96-114); Potassium* 3.6 mmol/L (3.6-5.1); Sodium* 137 mmol/L (135-149)
[2022-10-25 14:09] LABS: Blood Urea Nitrogen* 25 mg/dL (7-30); Carbon Dioxide* 27 mmol/L (20-32); Creatinine* 1.2 mg/dL (0.5-1.5); Est. Creatinine Clearance* 64.64; Estimated Glomerular Filt Rate 69 ml/min; Glucose* 142 mg/dL (60-115)
[2022-10-25 14:10] LABS: Calcium* 8.9 mg/dL (8.4-10.6); Magnesium* 1.5 mg/dL (1.5-2.6)
[2022-10-27 09:28] VITALS: BP 98/69; PULSE 91; RESP 16; TEMP 36.6; O2SAT 99
[2022-10-27] MEDS: dexAMETHasone 10 MG in 0.9 % SODIUM CHLORIDE 100 ml 100 ML 420 MG IVPB (09:55)
[2022-10-29 08:59] VITALS: BP 97/70; PULSE 94; RESP 14; TEMP 36.1; O2SAT 97
[2022-10-29] MEDS: dexAMETHasone 10 MG in 0.9 % SODIUM CHLORIDE 100 ml 100 ML 410 MG IVPB (09:26)
[2022-11-01 11:15] VITALS: BP 93/61; PULSE 106; RESP 16; TEMP 36.3; O2SAT 99
[2022-11-01 11:31] LABS: Chloride* 102 mmol/L (96-114); Sodium* 136 mmol/L (135-149)
[2022-11-01 11:32] LABS: Potassium* 3.8 mmol/L (3.6-5.1)
[2022-11-01 11:34] LABS: Creatinine* 1.3 mg/dL (0.5-1.5); Est. Creatinine Clearance* 59.67; Estimated Glomerular Filt Rate 63 ml/min
[2022-11-01 11:35] LABS: Blood Urea Nitrogen* 28 mg/dL (7-30); Carbon Dioxide* 24 mmol/L (20-32); Glucose* 144 mg/dL (60-115); Magnesium* 1.4 mg/dL (1.5-2.6)
[2022-11-01] MEDS: MAGNESIUM IV 2 GM/50 ML PIGGYBACK IVPB (12:13)
[2022-11-01 13:30] VITALS: BP 114/77; PULSE 76
[2022-11-05 08:51] VITALS: BP 133/80; PULSE 95; RESP 16; TEMP 36.3; O2SAT 99
--- NOTE | 2022-11-05 11:59 | ONC.NURNOTE ---
states feeling extremely well today. jamie some po. liquids going better. even attempting golfing tomorrow. enc him to call if at any time needs fluids. he realizes we have a prn order for him
--- NOTE | 2022-11-05 16:04 | ONC.NURNOTE ---
Per Barb /sheryl MONGE Ray will be coming in to be assessed by a RN,including a wt. labs drawn, BMP,MG.
[2022-11-09 08:35] VITALS: BP 120/79; PULSE 94; RESP 16; TEMP 36.1; O2SAT 99
[2022-11-09 08:50] LABS: Chloride* 102 mmol/L (96-114); Sodium* 137 mmol/L (135-149)
[2022-11-09 08:51] LABS: Potassium* 4.1 mmol/L (3.6-5.1)
[2022-11-09 08:53] LABS: Carbon Dioxide* 25 mmol/L (20-32); Creatinine* 1.2 mg/dL (0.5-1.5); Est. Creatinine Clearance* 64.64; Estimated Glomerular Filt Rate 69 ml/min
[2022-11-09 08:54] LABS: Blood Urea Nitrogen* 33 mg/dL (7-30); Calcium* 9.6 mg/dL (8.4-10.6); Glucose* 193 mg/dL (60-115); Magnesium* 1.6 mg/dL (1.5-2.6)
--- NOTE | 2022-11-09 09:26 | ONC.NURNOTE ---
alert and oriented. vs wnl. wt stable. states drinking fluids well but not able to eat much. Labs wnl. Chad receiving 1L NS per his request. Chad to continue Pepcid at HS [id number]. Refill called in for Mag daily. He was originally taking Mag BID. Instructed not to take mag with Pepcid. 1L NS 11/12. BMP, Mag and 1L NS. per Barb Dejesus APRN
[2022-11-12 08:54] VITALS: BP 116/76; PULSE 103; RESP 18; TEMP 35.7; O2SAT 100
[2022-11-16 08:35] VITALS: BP 117/70; PULSE 100; RESP 16; TEMP 36.1; O2SAT 99
[2022-11-16 08:43] LABS: Chloride* 103 mmol/L (96-114); Potassium* 4.1 mmol/L (3.6-5.1); Sodium* 138 mmol/L (135-149)
[2022-11-16 08:46] LABS: Blood Urea Nitrogen* 42 mg/dL (7-30); Carbon Dioxide* 22 mmol/L (20-32); Creatinine* 1.2 mg/dL (0.5-1.5); Est. Creatinine Clearance* 64.64; Estimated Glomerular Filt Rate 69 ml/min; Glucose* 144 mg/dL (60-115)
[2022-11-16 08:47] LABS: Calcium* 9.9 mg/dL (8.4-10.6); Magnesium* 1.5 mg/dL (1.5-2.6)
[2022-11-16] MEDS: MAGNESIUM IV 2 GM/50 ML PIGGYBACK IVPB (09:44)
[2022-11-19 08:22] VITALS: BP 102/73; PULSE 96; RESP 16; TEMP 36.2; O2SAT 98
[2022-11-19 08:51] LABS: Chloride* 103 mmol/L (96-114)
[2022-11-19 08:52] LABS: Potassium* 4.1 mmol/L (3.6-5.1); Sodium* 138 mmol/L (135-149)
[2022-11-19 08:54] LABS: Creatinine* 1.2 mg/dL (0.5-1.5); Est. Creatinine Clearance* 64.64; Estimated Glomerular Filt Rate 69 ml/min
[2022-11-19 08:55] LABS: Blood Urea Nitrogen* 39 mg/dL (7-30); Calcium* 9.8 mg/dL (8.4-10.6); Carbon Dioxide* 25 mmol/L (20-32); Glucose* 141 mg/dL (60-115)
[2022-11-20 07:15] LABS: Magnesium* 1.6 mg/dL (1.5-2.6)
== END 2023-02-22 23:59 | disposition home or self-care (01) ==
LOC: CCIC 08:15
PROVIDERS: Clinical Nurse Specialist; Internal Medicine Hematology & Oncology; PCP Family Medicine; Referring Provider Family Medicine; Visit Provider Internal Medicine Hematology & Oncology
DX: C10.9 Malignant neoplasm of oropharynx, unspecified (principal); Z79.899 Other long term (current) drug therapy
CPT/HCPCS: 36415; 80048; 80053; 82565; 83735; 84132; 84295; 85025; 96360; 96361; 96365; 96366; 96374; 96376; 96411; 96413; 97802; 99202; 99205; 99211; 99212; 99215; J1100; J1453; J2060; J2405; J2469; J3475; J3480; J7030; J7050; J7120; J9060; S0028

== ENCOUNTER 2023-05-30 07:15 | Emergency (ER) | payer OTHER, SELFPAY ==
[2023-05-30 07:18] VITALS: BP 113/75; PULSE 98; RESP 16; TEMP 35.8; O2SAT 98; BMI 32.7
--- NOTE | 2023-05-30 08:20 | CRLHL7_ITS ---
For Patients: As a result of the Century Cures Act, medical imaging exams and procedure reports are released immediately into your electronic medical record. You may view this report before your referring provider. If you have questions, please contact your health care provider. INDICATION: Right-sided jaw discomfort and swelling with a history of squamous cell carcinoma COMPARISON: 08/14/2022 TECHNIQUE: CT of the neck with contrast. Multiplanar axial, coronal, and sagittal reformats were reconstructed. Intravenous contrast: 111 mL of Isovue 370. FINDINGS: Lymph nodes: Surgical clips related to prior right-sided lymph node dissection. No enlarged or abnormal appearing cervical lymph nodes on either side.. Parotid and submandibular glands: Significantly inflamed and hyper enhancing right parotid gland. Central area of sub optimal enhancement measuring 0.8 cm does not have a well-defined rim and is somewhat irregularly-shaped on multiplanar reformats. Phlegmon or developing abscess/juan jose necrosis is not entirely excluded. There is air in the parotid duct all the way to the cheek. No calcified filling defect seen. Normal appearance of the left parotid gland. The submandibular glands appear normal.. Thyroid gland: Normal. Tonsils, airway, and parapharyngeal spaces: Postop right tongue base and adjacent parapharyngeal soft tissues appears similar compared to prior. Paranasal sinus: Normal. Soft tissues: Significant edema around the parotid gland including skin thickening, subcutaneous edema, asymmetric thickening of the platysma muscle.. No foreign body. Arteries: Moderate atherosclerosis. No arterial aneurysm, dissection, or thrombus. Veins: No deep vein thrombosis. Lung apices: Multiple air-filled cysts within simple hendrickson. Cysts are of varying size but are generally round. Appearance is similar compared to the previous exam. Bones: No fractures. No focal bone lesions. Having dental amalgam with streak artifact.. Included intracranial contents, orbits and mastoids: Normal. IMPRESSION: Significant right parotitis with developing intra parotid phlegmon or juan jose necrosis. Gas in the parotid duct. No obstructing calculus seen. Please note that all CT scans at this facility use dose modulation, iterative reconstruction, and/or weight-based dosing when appropriate to reduce radiation dose to as low as reasonably achievable. Dictated by Martha Lowry MD @ 05/30/2023 10:21:41 AM (Electronically Signed)
[2023-05-30 08:22] VITALS: BP 127/83; PULSE 73; RESP 16; O2SAT 99
[2023-05-30] MEDS: 0.9 % SODIUM CHLORIDE 1000 ml 1,000 ML IV (08:51)
[2023-05-30 08:55] LABS: Basophils Absolute Auto 0.02 K/uL (0.00-0.30); Basophils Percent Auto 0.3 % (0.0-3.0); Eosinophils Absolute Auto 0.16 K/uL (0.00-0.50); Eosinophils Percent Auto 2.4 % (0.0-7.0); Hematocrit 40.8 % (37.0-53.0); Hemoglobin* 13.1 gm/dL (13.5-17.5); Immature Granulocytes Abs Auto 0.04 K/uL (0.00-0.30); Immature Granulocytes Pct Auto 0.6 %; Lymphocytes Percent Auto 7.8 % (20-44); Mean Corpuscular HGB Conc 32 gm/dL (32-36); Mean Corpuscular Hemoglobin 29 pg (26-34); Mean Corpuscular Volume 90 fL (80-100); Monocytes Percent Auto 7.6 % (0.0-11.0); Neutrophils Percent Auto 81.3 % (42.0-72.0); Platelet Count* 194 K/uL (140-440); RDW Coefficient of Variation % 13.6 % (11.5-15.5); Red Blood Count 4.52 m/uL (4.30-5.90); White Blood Count* 6.69 K/uL (4.50-11.00)
[2023-05-30 08:56] LABS: Slide Review Reflex No
[2023-05-30 09:08] LABS: Chloride* 109 mmol/L (96-114); Sodium* 142 mmol/L (135-149)
[2023-05-30 09:09] LABS: Potassium* 3.5 mmol/L (3.6-5.1)
[2023-05-30 09:11] LABS: Creatinine* 1.1 mg/dL (0.5-1.5); Est. Creatinine Clearance* 71.89; Estimated Glomerular Filt Rate 76 ml/min
[2023-05-30 09:12] LABS: Anion Gap 8 mEq/L (7-15); Blood Urea Nitrogen* 29 mg/dL (7-30); Calcium* 9.4 mg/dL (8.4-10.6); Carbon Dioxide* 25 mmol/L (20-32); Glucose* 124 mg/dL (60-115)
[2023-05-30 10:10] VITALS: BP 125/87; PULSE 75; RESP 16; O2SAT 100
--- NOTE | 2023-05-30 12:43 | ED.GENADULT ---
HPI - General Adult General Date Seen: 05/30/23 Chief complaint: Head Injury/Pain Stated complaint: right side jaw pain Time Seen by Provider: 05/30/23 07:51 Source: patient and family Mode of arrival: ambulatory Limitations: no limitations History of Present Illness HPI narrative: This very nice 63-year-old gentleman presents here with his who is 1 of our ER nurses, with a history of right-sided facial swelling for the last 2-3 days. He has noted slightly painful when he opens his mouth. No fevers no chills, and no bad taste in his mouth. 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 This was done both with radiation and chemotherapy, and last completed that in October of 2022. He recently had a CT scan at [facility] where he gets his care, at the end of April which showed that he was still fairly clean with no resumption of his cancer. Denies fevers chills, denies a history of previous parotid swelling, no rashes noted. No history of being a non immunized, has use some Tylenol ibuprofen but no other stronger medications and no leftover antibiotics. Treatments prior to arrival: none Related Data Home Medications Medication Instructions Recorded Confirmed atenolol 50 mg tablet 50 mg PO Q24H 07/07/22 05/30/23 rosuvastatin 10 mg tablet 10 mg PO DAILY 07/07/22 11/16/22 Previous Rx's Medication Instructions Recorded famotidine 20 mg tablet (Pepcid) 20 mg PO QDAY #30 tabs 10/15/22 amoxicillin 875 mg-potassium 1 tab PO BID #20 tabs 05/30/23 clavulanate 125 mg tablet Allergies Allergy/AdvReac Type Severity Reaction Status Date / Time prochlorperazine Allergy Unknown Itchy skin Verified 05/30/23 09:50 [From Compazine] ciprofloxacin Allergy Rash Verified 05/30/23 09:50 Review of Systems Status of ROS: Reports: 10 or more systems reviewed and unremarkable except as noted in History and below [facility] Medical History Osteoarthritis ?M19.90 - Unspecified osteoarthritis, unspecified site (ICD-10) Hyperlipidemia ?E78.5 - Hyperlipidemia, unspecified (ICD-10) Hypertension ?I10 - Essential (primary) hypertension (ICD-10) Oropharyngeal cancer ?C10.9 - Malignant neoplasm of oropharynx, unspecified (ICD-10) Surgical History H/O neck surgery ?Z98.890 - Other specified postprocedural states (ICD-10) Family History Mother Breast cancer Sister Breast cancer Brother No problems noted. Brother Lung cancer Father Stroke Social History Smoking Status: Former smoker How often do you have a drink containing alcohol: never AUDIT-C Alcohol total score: 0 Non-prescribed substance use: denies use Exam Narrative: Exam Narrative: On examination raise in no apparent distress he is pleasant alert I am seeing him in room for along with his Fred. Pupils are equal round reactive to light his TMs normal bilaterally there is swelling on the right side of his angle of his jaw consistent with parotid swelling, the Stensen's duct on the inside of his pupil mucosa does not show any pus or any palpable masses suggestive of a stone. He is somewhat tender over his right side. There is no lymphadenopathy noted. His neck is supple no trismus and no meningismal signs. His chest is clear his heart sounds are normal. Const: Vital Signs, click to edit/add: Vital Signs - 24 hr 05/30/23 07:18 05/30/23 08:22 05/30/23 10:10 Temperature 96.5 F L Pulse Rate [Right Pulse Oximeter] 98 73 75 Respiratory Rate 16 16 16 Blood Pressure [Ri ght Upper Arm] 113/75 127/83 125/87 Pulse Oximetry 98 99 100 Oxygen Delivery Me thod Room Air Room Air Documenting provider has reviewed patient's vital signs: yes Course Course ED Course: I did review with them the CT scan results, showing enlargement and parotitis there is a small abscess a 0.8 cm. I did speak to and he will see the patient on Tuesday at 10:30 a.m.. He feels that warm packs and antibiotics would be appropriate rate now is this is a very small area, to needle. I did talk to the patient and family, they will come back if worsening. And they did not want any stronger pain medication at this time. Vital Signs Vital signs: Initial Vital Signs Temperature 96.5 F L 05/30/23 07:18 Temperature Source Temporal Artery Scan 05/30/23 07:18 Pulse Rate 98 05/30/23 07:18 Pulse Rhythm Regular 05/30/23 07:18 Respiratory Rate 16 05/30/23 07:18 Blood Pressure 113/75 05/30/23 07:18 Blood Pressure Mean 87 05/30/23 07:18 Blood Pressure Position Sitting 05/30/23 07:18 Pulse Oximetry 98 05/30/23 07:18 Oxygen Delivery Method Room Air 05/30/23 07:18 Vital Signs Temperature 96.5 F L 05/30/23 07:18 Pulse Rate 98 05/30/23 07:18 Respiratory Rate 16 05/30/23 07:18 Blood Pressure 113/75 05/30/23 07:18 Pulse Oximetry 98 05/30/23 07:18 Oxygen Delivery Method Room Air 05/30/23 07:18 Temperature 96.5 F L 05/30/23 07:18 Pulse Rate 75 05/30/23 10:10 Respiratory Rate 16 05/30/23 10:10 Blood Pressure 125/87 05/30/23 10:10 Pulse Oximetry 100 05/30/23 10:10 Oxygen Delivery Method Room Air 05/30/23 10:10 Medications Administered Medications: Discontinued Medications Generic Name Dose Route Start Last Admin Trade Name Freq PRN Reason Stop Dose Admin Sodium Chloride 1,000 mls @ 1,000 mls/hr 05/30/23 08:30 05/30/23 09:33 0.9 % Sodium Chloride 1000 Ml IV 05/30/23 09:29 Infused .Q1H [facility] Infusion Medical Decision Making Medical Records Medical records reviewed: Yes I reviewed the patient's medical records Lab Data Lab results reviewed: Yes I reviewed the patient's lab results Labs: Lab Results 05/30/23 Range/Units 08:45 WBC 6.69 (4.50-11.00) K/uL RBC 4.52 (4.30-5.90) m/uL Hgb 13.1 L (13.5-17.5) gm/dL Hct 40.8 (37.0-53.0) % MCV 90 (80-100) fL MCH 29 (26-34) pg MCHC 32 (32-36) gm/dL RDW Coeff of Otis 13.6 (11.5-15.5) % Plt Count 194 (140-440) K/uL Neut % (Auto) 81.3 H (42.0-72.0) % Lymph % (Auto) 7.8 L (20-44) % Rogers % (Auto) 7.6 (0.0-11.0) % Eos % (Auto) 2.4 (0.0-7.0) % Baso % (Auto) 0.3 (0.0-3.0) % Neut # (Auto) 5.40 (1.7-7.0) K/uL Lymph # (Auto) 0.50 L (0.90-2.90) K/uL Rogers # (Auto) 0.50 (0.00-0.90) K/UL Eos # (Auto) 0.16 (0.00-0.50) K/uL Baso # (Auto) 0.02 (0.00-0.30) K/uL Abs Immat Gran (auto) 0.04 (0.00-0.30) K/uL Imm/Tot Granulo (auto) 0.6 % Sodium 142 (135-149) mmol/L Potassium 3.5 L (3.6-5.1) mmol/L Chloride 109 (96-114) mmol/L Carbon Dioxide 25 (20-32) mmol/L Anion Gap 8 (7-15) mEq/L BUN 29 (7-30) mg/dL Creatinine 1.1 (0.5-1.5) mg/dL Estimated Creat Clear 71.89 Estimated GFR 76 ml/min Glucose 124 H (60-115) mg/dL Calcium 9.4 (8.4-10.6) mg/dL Discharge Plan Discharge Clinical Impression: Acute parotitis Patient Disposition: Home, Self-Care Condition: Stable Instructions: Sialoadenitis (ED), Adenitis (ED) Additional Instructions: Home,rest and use of the augmentin. Take twice a day, warm compresses on there. Suggest we use Tylenol or ibuprofen, lots of fluids, any sort of sour candies, return here if increasing pain, swelling, fevers chills, or other issues otherwise follow-up with Dr. Steffanie Allen on Tuesday at 10:30 a.m. here in [place] Activity Level: Light activity Prescriptions: New amoxicillin-pot clavulanate 875-125 mg tablet 1 tab PO BID Qty: 20 0RF No Action atenolol 50 mg tablet 50 mg PO Q24H Hold Instructions: having HoTN rosuvastatin 10 mg tablet 10 mg PO DAILY famotidine [Pepcid] 20 mg tablet 20 mg PO QDAY Qty: 30 0RF Follow Up/Referrals: Haider Adamson MD [Primary Care Provider] - Stand Alone Forms: [employer] Info Instructions
== END 2023-05-30 11:10 | disposition home or self-care (01) ==
PROVIDERS: Emergency Provider Family Medicine; PCP Family Medicine
DX: K11.21 Acute sialoadenitis (principal)
CPT/HCPCS: 36415; 70491; 80048; 85025; 99284; J7030; Q9967

== ENCOUNTER 2023-06-01 14:45 | Outpatient (CLI) | payer OTHER, SELFPAY ==
--- NOTE | 2023-06-01 15:00 | CRLHL7_ITS ---
For Patients: As a result of the Cures Act, medical imaging exams and procedure reports are released immediately into your electronic medical record. You may view this report before your referring provider. If you have questions, please contact your health care provider. Indication: Localized swelling, mass and lump, neck Technique: Grayscale and color Doppler ultrasound of the right parotid gland performed. Comparison: 05/30/2023 Findings: The parotid gland is heterogeneous with an ill-defined area complex fluid within the parotid gland measuring approximately 1.9 x 0.8 cm. No abnormal vascularity. Impression: Ill-defined fluid collection within the right parotid gland representing necrotic tissue or phlegmon/abscess. Dictated by Harinder Huston MD @ 06/02/2023 9:29:03 AM (Electronically Signed)
== END 2023-06-01 14:46 | disposition home or self-care (01) ==
PROVIDERS: PCP Family Medicine; Visit Provider Otolaryngology
DX: R22.1 Localized swelling, mass and lump, neck (principal)
CPT/HCPCS: 76536

== ENCOUNTER 2023-06-03 11:50 | Outpatient (CLI) | payer OTHER, SELFPAY ==
--- NOTE | 2023-06-03 12:00 | CRLHL7_ITS ---
For Patients: As a result of the Century Cures Act, medical imaging exams and procedure reports are released immediately into your electronic medical record. You may view this report before your referring provider. If you have questions, please contact your health care provider. ULTRASOUND-GUIDED ASPIRATION OF RIGHT PAROTID GLAND ABSCESS CLINICAL HISTORY: Right parotid gland swelling COMPARISON STUDIES: Ultrasound 06/01/2023, CT 05/30/2023 TECHNIQUE: Real-time ultrasound with image documentation was used for targeting the right parotid gland lesion. Aspiration of 5 cc pus/blood fluid from the right parotid gland. CONSENT and TIME OUT: The procedure, risks, and alternatives were explained to the patient and a consent was signed. [place] Protocol was followed including pre-procedure verification that relevant information/documentation was available, reviewed and properly matched to the patient; consent accurate and complete; and equipment and supplies available. Time Out was conducted just prior to starting procedure to verify the four required elements: patient identity, correct side/site marked (if applicable), procedure, relevant images/results properly labeled and displayed (if applicable). PROCEDURE: The patient was positioned supine on the ultrasound table. The right cheek was prepped with ChloraPrep. 5 cc of 1 percent lidocaine used for local anesthesia. 18 gauge needle was used to aspirate fluid. No complications. Pressure was held on the biopsy site until all bleeding subsided. LATERALITY: Right parotid gland LESION: Heterogeneous fluid collection within the right parotid gland. IMPRESSION: Ultrasound-guided aspiration of right parotid gland abscess. 5 cc of pus/blood was removed and sent to the lab. Dictated by Harinder Huston MD @ 06/03/2023 2:37:32 PM (Electronically Signed)
== END 2023-06-03 11:51 | disposition home or self-care (01) ==
PROVIDERS: PCP Family Medicine; Visit Provider Otolaryngology
DX: K11.8 Other diseases of salivary glands (principal)
CPT/HCPCS: 10005; 87070; 87186

== ENCOUNTER 2025-04-09 08:40 | Outpatient (CLI) | payer OTHER, SELFPAY ==
--- NOTE | 2025-04-09 10:11 | P.ANES_ITS ---
Anesthesia Charges Start Date/Time Anesthesia Start Date: 04/09/25 Anesthesia Start Time: 09:35 Stop Date/Time Anesthesia Stop Date: 04/09/25 Anesthesia Stop Time: 10:09 Coding CPT Codes CPT Codes: EPIFANIO [place] INTST NDSC NOS - [id number] ([id number]) P2 - PATIENT W/MILD SYST DISEASE, QX - HYDROGRAPHICAL TECHNICAL OFFICER SVC W/ MD MED DIRECTION, QK - ASSISTANT TENNIS COACH 2-4 CNCRNT EPIFANIO PROC
--- NOTE | 2025-04-09 10:11 | W.ANESCHARGE ---
Anesthesia Charges Start Date/Time Anesthesia Start Date: 04/09/25 Anesthesia Start Time: 09:35 Stop Date/Time Anesthesia Stop Date: 04/09/25 Anesthesia Stop Time: 10:09 Coding CPT Codes CPT Codes: EPIFANIO [place] INTST NDSC NOS - [id number] ([id number]) P2 - PATIENT W/MILD SYST DISEASE, QX - ADVERTISING OPERATIONS COORDINATOR SVC W/ MD MED DIRECTION, QK - SALES AGENT FIRE INSURANCE 2-4 CNCRNT EPIFANIO PROC
--- NOTE | 2025-04-09 10:44 | P.ANES_ITS ---
Anesthesia Charges Start Date/Time Anesthesia Start Date: 04/09/25 Anesthesia Start Time: 09:35 Stop Date/Time Anesthesia Stop Date: 04/09/25 Anesthesia Stop Time: 10:09 Coding CPT Codes CPT Codes: EPIFANIO LWR INTST NDSC NOS - [id number] ([id number]) P2 - PATIENT W/MILD SYST DISEASE, QK - CAR BARN LABORER 2-4 CNCRNT ANES PROC, QX - OFFICE AUTOMATION TECHNICIAN SVC W/ MD MED DIRECTION
--- NOTE | 2025-04-09 10:44 | W.ANESCHARGE ---
Anesthesia Charges Start Date/Time Anesthesia Start Date: 04/09/25 Anesthesia Start Time: 09:35 Stop Date/Time Anesthesia Stop Date: 04/09/25 Anesthesia Stop Time: 10:09 Coding CPT Codes CPT Codes: EPIFANIO LWR INTST NDSC NOS - 29470 ([id number]) P2 - PATIENT W/MILD SYST DISEASE, QK - BEAM SAW OPERATOR 2-4 CNCRNT ANES PROC, QX - FIREFIGHTING EQUIPMENT SPECIALIST SVC W/ MD MED DIRECTION
== END 2025-04-09 08:41 | disposition home or self-care (01) ==
PROVIDERS: PCP Family Medicine; Visit Provider Surgery
DX: Z12.11 Encounter for screening for malignant neoplasm of colon (principal); R19.5 Other fecal abnormalities; D12.2 Benign neoplasm of ascending colon; D12.3 Benign neoplasm of transverse colon; D12.4 Benign neoplasm of descending colon; D12.8 Benign neoplasm of rectum
CPT/HCPCS: 00811; 00812; 45385; 88305; J2704